=== PATIENT | female | born 1965 | race Caucasian/White ===

== ENCOUNTER → 2020-12-30 08:36 | Outpatient (CLI) | payer OTHER, MEDICAID, SELFPAY ==
--- NOTE | 2020-12-30 | DI.ECHO.S_ITS ---
[facility] +---------+ : : [address] : [address] : : : : [phone] : : : : Phone: [phone]+ Echocardiogram Report + + :Name: OMAIRA THOMAS Study Date: 12/30/2020 Height: 69 in : :[facility] ReadingLocation: Weight: 227 lb : : Gender: Female BSA: 2.2 m2 : :: 1965 Age: 55 yrs BP: 131/84 mmHg: :Reason For Study: DYSPNEA : :Ordering Physician: TOSIN, : :EMMA Performed By: Georgie Marroquin : :Referring: EMMA ANDRE : + + Interpretation Summary 1) Normal left ventricular thickness, size, wall motion, and systolic function (EF 55-60%). 2) Normal right ventricular size and function. 3) No significant valvular abnormalities. 4) The right ventricular systolic pressure is estimated to be at least 28 mmHg based on an estimated right atrial pressure of 3 mm Hg. 5) No prior Echo available for comparison. Procedure: A two-dimensional transthoracic echocardiogram with color flow and Doppler was performed. The study quality was technically adequate. There is no prior echocardiogram noted for this patient. The patient was in sinus bradycardia with heart rates between 57-63 bpm during the exam. Left Ventricle: The left ventricle is normal in size and wall thickness. The ejection fraction is estimated to be 55-60%. Left ventricular wall motion is normal. Diastolic parameters suggest probable normal left ventricular diastolic function and normal filling pressures. Right Ventricle: The right ventricle is normal in size and function. Atria: The left atrium is moderately dilated. Right atrial size is normal. There is no Doppler evidence for an interatrial shunt. Mitral Valve: The mitral valve is normal in structure and function. There is trace mitral regurgitation. Aortic Valve: The aortic valve opens well. There is no aortic valve stenosis. No aortic regurgitation is present. Tricuspid Valve: The tricuspid valve is normal in structure and function. There is mild tricuspid regurgitation. The right ventricular systolic pressure is estimated to be at least 28 mmHg based on an estimated right atrial pressure of 3 mm Hg. Pulmonic Valve: The pulmonic valve is not well seen, but is grossly normal. There is no pulmonic valvular regurgitation. Great Vessels: The aortic root is normal size. The dimensions of the ascending aorta are normal. The IVC is of normal diameter and collapses greater than 50% with a sniff. This suggests a low right atrial pressure of 3 mm Hg. Pericardium/ Pleura There is no pericardial effusion. There is no pleural effusion. MMode/2D Measurements & Calculations LVIDd: 4.1 cm LVOT diam: 2.1 cm LVIDs: 2.7 cm Ao root diam: 3.3 cm FS: 32.3 % asc Aorta Diam: 3.1 cm IVSd: 1.1 cm Ao Arch Diam (Prox Trans): 2.7 cm LVPWd: 0.92 cm LV durán. diameter/BSA (cm/m^2): 1.9 LV sys. diameter/BSA (cm/m^2): 1.3 LA A2 area: 22.9 cm2 RA long axis: 5.3 cm LA A4 area: 23.4 cm2 RA area: 19.5 cm2 LA length (vol): 5.6 cm RA vol: 60.2 ml LA vol: 82.1 ml RA : 27.6 ml/m2 LA vol index: 37.7 ml/m2 IVC diam: 1.9 cm RVD1 (basal): 4.0 cm TAPSE: 2.3 cm Doppler Measurements & Calculations Ao V2 max: 119.6 cm/sec LVOT Max Ga: 96.0 cm/sec Ao V2 mean: 85.0 cm/sec LV V1 max P.7 mmHg Ao max P.7 mmHg LV V1 VTI: 23.7 cm Ao mean P.3 mmHg CA(I,D): 2.6 cm2 Ao V2 VTI: 30.4 cm CA(V,D): 2.7 cm2 sev ratio: 0.78 CA indexed to BSA (cm^2/m^2): 1.2 MV E max ga: 88.6 cm/sec TR max ga: 248.5 cm/sec MV A max ga: 77.7 cm/sec TR max P.7 mmHg MV E/A: 1.1 PA V2 max: 82.8 cm/sec Med Peak E' Ga: 8.9 cm/sec PA V2 mean: 55.5 cm/sec E/E' med: 10.0 PA mean P.4 mmHg Lat Peak E' Ga: 10.7 cm/sec PA pr(Accel): 19.1 mmHg E/E' lat: 8.3 E/e' average: 9.1 MV dec time: 0.19 sec SV(LVOT): 79.2 ml Reading Physician:11:14 AM
== END ==
PROVIDERS: Referring Provider Internal Medicine Cardiovascular Disease; Visit Provider Internal Medicine Cardiovascular Disease
DX: I07.1 Rheumatic tricuspid insufficiency (principal); R06.00 Dyspnea, unspecified; R60.0 Localized edema
CPT/HCPCS: 93306

== ENCOUNTER → 2021-05-09 08:18 | Outpatient (CLI) | payer OTHER, MEDICAID, SELFPAY ==
--- NOTE | 2021-05-09 | DI.MG.S_ITS ---
BILATERAL DIGITAL SCREENING MAMMOGRAM 3D/2D WITH CAD: 05/09/2021 CLINICAL: Routine screening. Family history of breast cancer. Comparison is made to exams dated: 08/17/2012 mammogram and 08/20/2011 mammogram - outside facility. There are scattered fibroglandular elements in both breasts. Current study was also evaluated with a Computer Aided Detection (CAD) system. There is a possible developing new 0.6 cm oval equal density asymmetry in the left breast middle depth central to the nipple seen on the craniocaudal view only. No other significant masses, calcifications, or other findings are seen in either breast. IMPRESSION: INCOMPLETE: NEEDS ADDITIONAL IMAGING EVALUATION The possible developing new 0.6 cm oval equal density asymmetry in the left breast is indeterminate. Additional views with possible ultrasound are recommended. This exam was interpreted at Station ID: [id number]. NOTE: For mammograms, a report in lay terms will be sent to the patient. Approximately 15% of breast malignancies will not be visualized mammographically. In the management of a palpable breast mass, a negative mammogram must not discourage biopsy of a clinically suspicious lesion. Electronically Signed By: Peyman Ann M.D. aty/:05/09/2021 14:40:08 letter sent: Additional Imaging Needed ACR BI-RADS Category 0: Incomplete [id number]
== END ==
PROVIDERS: Family Provider Nurse Practitioner; PCP Nurse Practitioner; Referring Provider Registered Nurse General Practice; Visit Provider Registered Nurse General Practice
DX: Z12.31 Encounter for screening mammogram for malignant neoplasm of breast (principal); Z80.3 Family history of malignant neoplasm of breast
CPT/HCPCS: 77063; 77067

== ENCOUNTER 2021-05-22 09:00 | Outpatient (RCR) | payer OTHER, MEDICAID, SELFPAY ==
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
--- NOTE | 2021-05-01 10:01 | PT-OP ANOTE ---
Pt called and cancelled same day appt, not having a good day and needed to cancel. 

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
--- NOTE | 2021-05-07 10:08 | PT-OP ANOTE ---
Pt no shows appointment. This is the first visit scheduled with this PT. She no showed evaluation and has had one same day cancellation. PT calls number in chart that has a full voicemail. Two calls to the [facility] and PT speaks with transportation person who states that pt did not have transportation scheduled today and that pt came to [place] for PT yesterday. PT ed that pt did not have a PT appointment at [facility] yesterday but had one today. Also left message for Leighton at extension [phone]. If do not hear back from him by the end of the day, will d/c PT and cancel the rest of appointments.
--- NOTE | 2021-05-07 10:33 | PT-OP ANOTE ---
PT speaks with front office who reports that Leighton returned call and pt to get transportation set up through him now that he knows the appointments. Will keep current appointments.
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
== END 2021-07-01 08:43 ==
LOC: PHYS 09:00
PROVIDERS: Family Provider Nurse Practitioner; PCP Nurse Practitioner; Referring Provider Nurse Practitioner; Visit Provider Nurse Practitioner
DX: M25.511 Pain in right shoulder (principal)
CPT/HCPCS: 97010; 97110; 97140; 97163; 97535

== ENCOUNTER 2021-05-27 08:59 | Emergency (ER) | payer OTHER, MEDICAID, SELFPAY ==
[2021-05-27 09:08] VITALS: BP 126/78; PULSE 112; RESP 14; TEMP 36.8; O2SAT 94; BMI 29.5
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
--- NOTE | 2021-05-27 10:06 | PC.NURSE ---
Pts dog pulled on the leash 2 days ago and now her neck hurts.
== END 2021-05-27 10:08 | disposition home or self-care (01) ==
PROVIDERS: Emergency Provider Emergency Medicine; Family Provider Nurse Practitioner; PCP Nurse Practitioner
DX: S16.1XXA Strain of muscle, fascia and tendon at neck level, initial encounter (principal); F17.200 Nicotine dependence, unspecified, uncomplicated; X50.0XXA Overexertion from strenuous movement or load, initial encounter
CPT/HCPCS: 99281

== ENCOUNTER → 2021-06-10 08:52 | Outpatient (CLI) | payer OTHER, MEDICAID, SELFPAY ==
--- NOTE | 2021-06-10 08:54 | DI.MG.S_ITS ---
UNILATERAL LEFT DIGITAL DIAGNOSTIC MAMMOGRAM 3D/2D WITH ADDITIONAL VIEWS: 06/10/2021 CLINICAL: Additional evaluation requested from prior study. Comparison is made to exams dated: 08/17/2012 mammogram - outside facility, 05/09/2021 mammogram - [facility], and 08/20/2011 mammogram - outside facility. There are scattered fibroglandular elements in left breast. There is a new 0.6 cm oval equal density asymmetry in the left breast middle depth central to the nipple seen on the craniocaudal view only. No other significant masses or calcifications are seen in the breast. IMPRESSION: INCOMPLETE: NEEDS ADDITIONAL IMAGING EVALUATION The new 0.6 cm oval equal density asymmetry in the left breast is indeterminate. A targeted ultrasound is recommended and will immediately follow. This exam was interpreted at Station ID: [id number]. NOTE: For mammograms, a report in lay terms will be sent to the patient. Approximately 15% of breast malignancies will not be visualized mammographically. In the management of a palpable breast mass, a negative mammogram must not discourage biopsy of a clinically suspicious lesion. Electronically Signed By: Min Beavers M.D. slc/:06/10/2021 09:54:07 ACR BI-RADS Category 0: Incomplete [id number]
--- NOTE | 2021-06-10 08:55 | DI.US.S_ITS ---
PROCEDURE: US BREAST LT LIMITED COMPARISON: None. INDICATIONS: ADD VIEW LEFT BREAST FINDINGS: IMPRESSION: Dictated by: Min Beavers M.D. on 06/10/2021 at 11:45 Approved by: Min Beavers M.D. on 06/10/2021 at 11:45
--- NOTE | 2021-06-10 10:33 | DI.US.S_ITS ---
At the request of: TIARA HATFIELD Procedure: US breast LT limited LIMITED ULTRASOUND OF LEFT BREAST AND AXILLA: 06/10/2021 CLINICAL: Patient returns today to evaluate a focal asymmetry in the left breast. Comparison is made to exams dated: 06/10/2021 mammogram, 05/09/2021 mammogram - [facility], 08/17/2012 mammogram, and 08/20/2011 mammogram - outside facility. Color flow and real-time ultrasound of the left breast axilla were performed. Dahl scale images of the real-time examination were reviewed. There is a 0.8 cm x 0.4 cm x 0.4 cm wider than tall oval mass in the left breast at 12 o'clock middle depth 4 cm from the nipple. This oval mass is hypoechoic. This likely correlates with mammography findings. Color flow imaging demonstrates that there is no vascularity present. No significant abnormalities were seen sonographically in the left axilla. IMPRESSION: SUSPICIOUS OF MALIGNANCY The 0.8 cm x 0.4 cm x 0.4 cm wider than tall oval mass in the left breast is at a low suspicion for malignancy. An ultrasound guided biopsy is recommended. Exam findings were discussed with the patient by Dr. Slater. This exam was interpreted at Station ID: [id number]. Electronically Signed By: Min Beavers M.D. slc/:06/10/2021 11:52:40 letter sent: Biopsy Required Ultrasound BI-RADS: 4a Low suspicion for malignancy Continued Report - Page 2 of 2 Patient Name: OMAIRA THOMAS date: 1965 Sex: F Attending Physician: Lawrence Indications: Date: 06/10/2021 10:30 At the request of: TIARA HATFIELD Procedure: US breast LT limited
== END ==
PROVIDERS: Family Provider Nurse Practitioner; PCP Nurse Practitioner; Referring Provider Registered Nurse General Practice; Visit Provider Registered Nurse General Practice
DX: R92.8 Other abnormal and inconclusive findings on diagnostic imaging of breast (principal); N63.25 Unspecified lump in the left breast, overlapping quadrants
CPT/HCPCS: 76642; 77065; G0279

== ENCOUNTER → 2021-07-11 09:00 | Outpatient (CLI) | payer OTHER, MEDICAID, SELFPAY ==
--- NOTE | 2021-07-11 | DI.MG.S_ITS ---
UNILATERAL LEFT DIGITAL DIAGNOSTIC MAMMOGRAM 3D/2D POST-PROCEDURE IMAGING FOR MARKER PLACEMENT: 07/11/2021 CLINICAL: Left post clip. Comparison is made to exams dated: 07/11/2021 ultrasound biopsy, 06/10/2021 ultrasound, and 06/10/2021 mammogram - [facility]. There are scattered fibroglandular elements in left breast. There is a marker clip in the appropriate position in the left breast at 12 o'clock middle depth. This marker clip placement is at the biopsy site. IMPRESSION: POST PROCEDURE MAMMOGRAM FOR MARKER PLACEMENT There was a successful marker clip placement in the left breast middle depth. This exam was interpreted at Station ID: [id number]. NOTE: For mammograms, a report in lay terms will be sent to the patient. Approximately 15% of breast malignancies will not be visualized mammographically. In the management of a palpable breast mass, a negative mammogram must not discourage biopsy of a clinically suspicious lesion. Electronically Signed By: Tawanna mendenhall/nico:07/11/2021 15:33:24 ACR BI-RADS Category Post-procedure mammogram for marker placement
--- NOTE | 2021-07-11 | DI.US.S_ITS ---
ULTRASOUND GUIDED BIOPSY LEFT BREAST USING VACUUM DEVICE WITH MARKING DEVICE INSERTED AND POST DIGITAL MAMMOGRAPHIC IMAGIN07/11/2021 CLINICAL: Left breast mass. PATIENT CONSENT: Risks (minor bleeding, infection, vasovagal reaction and repeat procedure), benefits and alternatives were explained to the patient and written informed consent was obtained. Correlation is made to exams dated: 06/10/2021 ultrasound, 06/10/2021 mammogram, 05/09/2021 mammogram - [facility], 08/17/2012 mammogram, and 08/20/2011 mammogram - outside facility. An ultrasound guided biopsy using real-time ultrasound was performed for the oval mass located in the left breast at 12 o'clock middle depth. The skin was prepped in the usual manner. Local anesthetic was administered to the access site. A skin richard was made in the breast. The abnormality was approached from the lateral aspect. A 13 gauge biopsy needle was placed adjacent to the abnormality under ultrasound guidance. Once the needle was documented to be in the correct location, three specimens were obtained using the Mammotome biopsy system. A Vision biopsy clip was inserted into the biopsy cavity. A skin closure strip was applied to the access site. Post procedure digital mammographic imaging was obtained. The specimens were sent to the laboratory for pathological analysis. IMPRESSION: ULTRASOUND GUIDED BIOPSY BENIGN Ultrasound guided biopsy of the mass in the left breast at 12 o'clock middle depth was successful. Pathology indicates benign chronic inflammation with micro-calcifications present. Pathology results are concordant with imaging findings. Return to annual mammogram screening schedule is recommended. This exam was interpreted at Station ID: [id number]. Tawanna Ann M.D. [facility],aty/:07/16/2021 07:59:31
--- NOTE | 2021-07-11 | PATH_ITS ---
[facility] Accession Number: [id number] No. of containers..01 Tissue . 01 Material submitted: . breast - LEFT BREAST MASS 12:00 4CMFN . 02 Diagnosis: A. Left Breast Mass, 12 o'clock, 4 cm from the Nipple, Biopsy: Fragments of cyst wall with associated microcalcifications and chronic inflammation. Background breast parenchyma within normal limits. Negative for atypia, carcinoma in situ, and malignancy. MRV 07/14/2021 1015 Local . 02 Electronically signed: . Angeli Davison MD, Pathologist NPI- [id number] . 01 Gross description: . Received one formalin-filled container, labeled with the patient's name and designated left breast mass 12 o'clock 4 cm FN. The specimen is received with a plastic filter in container, sample loose in container and consists of three fragments of yellow-carrion soft tissue which range in size from 1.0 x 0.3 x 0.3 cm to 1.3 x 0.3 x 0.3 cm. All fragments are totally submitted in one cassette. Possible collection date and time per requisition: 07/11/2021 at 10:24. Total fixation time: Approximately 42 hours. ([id number]) /FRR 07/12/2021 0953 Local . 02 Pathologist provided ICD-10: R92.8 . 02 CPT . 624083 Specimen Comment: A courtesy copy of this report has been sent to [facility] Performed at: 01 [facility] [address] [facility], [place], [place] [id number] MD Papa Murdock MD Phone: [phone] Performed at: 02 [facility] [id number] [place] [id number] MD Jessie Tavarez MD Phone: [phone]
== END ==
PROVIDERS: Family Provider Nurse Practitioner; PCP Nurse Practitioner; Referring Provider Registered Nurse General Practice; Visit Provider Registered Nurse General Practice
DX: N61.0 Mastitis without abscess (principal); R92.1 Mammographic calcification found on diagnostic imaging of breast
CPT/HCPCS: 19083; 77065

== ENCOUNTER → 2021-12-02 09:06 | Outpatient (CLI) | payer OTHER, MEDICAID, SELFPAY ==
--- NOTE | 2021-12-02 | DI.RAD.S_ITS ---
PROCEDURE: XR CHEST 2V INDICATIONS: cough, shortness of breath, nicotine dependence, bronchitis TECHNIQUE: 2 views of the chest were acquired. COMPARISON: None. FINDINGS: Surgical changes and devices: None. Lungs and pleura: Lungs are clear. No pleural effusions or pneumothorax. Coarsened centralized bronchovascular markings Mediastinum: Mediastinal contours are normal. Heart size is normal. Bones and chest wall: No suspicious bony abnormalities. Soft tissues appear unremarkable. IMPRESSION: Coarsened centralized bronchovascular markings may reflect chronic bronchitis. No focal infiltrate Approved by: Tin Hanley M.D. on 12/02/2021 at 9:22
== END ==
PROVIDERS: Family Provider Nurse Practitioner; PCP Nurse Practitioner; Referring Provider Registered Nurse General Practice; Visit Provider Registered Nurse General Practice
DX: R06.02 Shortness of breath (principal); R05.9 Cough, unspecified; J40 Bronchitis, not specified as acute or chronic; F17.219 Nicotine dependence, cigarettes, with unspecified nicotine-induced disorders
CPT/HCPCS: 71046

== ENCOUNTER → 2022-12-04 11:54 | Outpatient (CLI) | payer OTHER, MEDICAID, SELFPAY ==
--- NOTE | 2022-12-04 | DI.MG.S_ITS ---
BILATERAL DIGITAL DIAGNOSTIC MAMMOGRAM 3D/2D: 12/04/2022 CLINICAL: Post excisional biopsy Left. Family history of breast cancer. Comparison is made to exams dated: 07/11/2021 mammogram, 06/10/2021 mammogram, 05/09/2021 mammogram - [facility], and 08/17/2012 mammogram - outside facility. There are scattered areas of fibroglandular density in both breasts (category b / 25%-50% glandular tissue). No significant masses, calcifications, or other findings are seen in either breast. Left breast biopsy clip and scar marker. IMPRESSION: BENIGN There is no mammographic evidence of malignancy. Left breast scar marker. Stable left breast biopsy clip. A 1 year screening mammogram is recommended. Exam findings were conveyed to the patient. Based on the Tyrer Cuzick model (a risk assessment model) the patient's lifetime risk is 13.0% and her 10 year risk is 5.1%. According to the ACR, ACS, and NCCN guidelines, an annual breast MRI exam along with mammogram is recommended if the patient's lifetime risk is 20% or greater. This exam was interpreted at Station ID: [id number]. NOTE: For mammograms, a report in lay terms will be sent to the patient. Approximately 15% of breast malignancies will not be visualized mammographically. In the management of a palpable breast mass, a negative mammogram must not discourage biopsy of a clinically suspicious lesion. Electronically Signed By: Min Beavers M.D. [facility]/:12/04/2022 12:32:59 letter sent: Normal Exam ACR BI-RADS Category 2: Benign Finding(s) 3342F
== END ==
PROVIDERS: Family Provider Nurse Practitioner Family; PCP Nurse Practitioner Family; Referring Provider Nurse Practitioner Family; Visit Provider Nurse Practitioner Family
DX: N63.20 Unspecified lump in the left breast, unspecified quadrant (principal); Z80.3 Family history of malignant neoplasm of breast
CPT/HCPCS: 77066; G0279

== ENCOUNTER 2023-03-03 10:45 | Outpatient (RCR) | payer OTHER, MEDICAID, SELFPAY ==
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
--- NOTE | 2023-01-15 10:17 | PT-OP ANOTE ---
Pt did not show for today's appt. MEDICAL RESEARCHER left voice message regarding and reminded no show policy and try call >24 hrs if need cancel. Reminded of next appt 01/20 at 1245 with PT Romy.
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
--- NOTE | 2023-02-12 12:16 | PT-OP ANOTE ---
Pt did not show for today's appt at 1200. MILL REPRESENTATIVE called and left message regarding, reminded of [facility] policy. Reminded of next appt 02/15 at 1200.
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
--- NOTE | 2023-03-01 11:34 | PT.OPPOC ---
Physical, Occupational & Speech Therapy At [facility] Current Diagnoses Pain in unspecified shoulder (03/01/23) Pain in unspecified knee (03/01/23) Cervicalgia (03/01/23) Low back pain, unspecified (03/01/23) Pain in thoracic spine (03/01/23) Muscle weakness (generalized) (03/01/23) Difficulty in walking, not elsewhere classified (03/01/23) Unsteadiness on feet (03/01/23) Abnormal posture (03/01/23) Visit Care Team Role Provider Type Aniket Zepeda, TONY, SECTION MAINTAINER Attending Provider Non-Staff Family Provider Primary Care Provider Referring Provider Specialty: Nursing Address: [address] [place], [address] Fax: Email: Plan Of Care PT-OP-T Assessment and Plan Start: 12/07/22 09:24 Freq: Status: Active Protocol: Document 03/01/23 10:02 [facility] (Rec: 03/01/23 11:33 [facility] [id number]) Physical Therapy Assessment Goals functional measures Impairment Quick Dash 40.9; LEFS 39/80 Short Term Goal (STG) Pt will improve LEFS score to at least 45/80 to show improved functional ability. 10/2-LEFS worse STG Duration 04/29 Electronics Recycler Goal (LTG) Pt will improve LEFS score to at least 55/80 to show improved functional ability. LTG Duration 05/24 activity Short Term Goal (STG) Pt will be able to ambulate 1/ 2 mile before she inc pain greater than 4/10. 01/06/23: able walk 1/2 mile with 4 little hills/[place] approx 5/10 pain so goes back. 02/15/23: Pt reports little reports neck pain still about 5-6/10 starting out for walks but able increase to 1 mile 1x /day starting out then after stops and performs stretches then feels better 5/10. STG Duration achieved 03/01 Halfway Goal (LTG) Pt will be able to ambulate 1 mile before she inc pain greater than 3/10. 02/15/23: progressing walking about 1 mile now but neck pain 5-6/10. 10/2-7/10 after 1 mile right now d/t inc pain after the last week LTG Duration 05/24 ROM Short Term Goal (STG) Pt will improve cervical rotation B by at least 10 deg in order to improve ability to turn for driving 03/01-achieved advance to at least 65 deg rot B for driving STG Duration 04/19 Electronics Recycler Goal (LTG) Pt will be able to lift RUE into flex and abd to at least 100 deg to allow greater ease w/ADLs like washing hair. LTG Duration achieved 03/01 standing Impairment pain immediately w/standing Short Term Goal (STG) Pt will be able to stand for 5 minutes w/o inc back pain or knee pain. 01/06/23: progresing reports about to stand about 5 min then has pain to sit and take breaks, dishes/ cooking. 02/15/23: Pain increases about 5 min doing dishes but little better with wt shifting 8>12/07 . 10/2-limited right now since irritated back and knee w/long walk STG Duration 04/29 Assessment Summary Assessment Pt has made excellent progress w/PT and is demonstrating much improved neck and shoulder ROM, but does still note neck stiffness and R shoulder pain especially w/ lifting. She was doing well w/ walking, but back and knee got signfiicantly flared up after walking across town about 1 week ago and is noting radicular pain in LLE along w/ L knee pain ant. She would benefit from cont PT to work on improving cervical rot as she soon returns to driving, RUE strength and ROM in order to dec pain w/overhead activities and BLE strength and core stabiltiy as pt cont to be limited by this w/gait and standing d/t pain. Physical Therapy Plan Frequency and Duration Frequency of Treatment 1-2x/wk Duration of treatment (weeks) 12 Plan of Care Start Date 03/01/23 Plan of Care End Date 05/24/23 Therapeutic Interventions Therapeutic Interventions Aquatic Therapy,Balance Training,Gait Training,Home Exercise Program,Joint Mobilizations,Manual Therapy, Neuromuscular Re-education, Orthotic/Prosthetic Management ,Patient/Caregiver Education, Self-Care/Home Management,Soft Tissue Mobilization,Taping, Therapeutic Activities, Therapeutic Exercises Modalities Cold Pack/Ice Massage,Electric Stimulation,Hot Packs, Infrared Therapy,Iontophoresis ,Traction- Mechanical, Ultrasound Next Visit Focus/Plan Next Note Type Treatment Note Next Visit Plan 11th visit next tx PN POC:cont to work on shoulder strength and cervical ROM; manual o improve neck and shoulder ROM Plan of Care Dates Plan of Care Start Date 03/01/23 Plan of Care End Date 05/24/23 Electronically Signed by: Romy Rajan, PT 03/01/23 [id number] If you are in agreement with this Plan of Care, please return a signed and dated copy. I have reviewed this Plan of Care and certify that the skilled therapy services above are required to meet the patient?s needs. Physician Signature Date Printed Name and Credentials Clinical Instructor Signature Printed Name and Credentials
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
--- NOTE | 2023-03-10 11:00 | PT-OP ANOTE ---
Pt did not show for today's appt. DRY CELL AND BATTERY ASSEMBLER called and left voice message regarding, reminded of potential NS fee may acrue. Offered DR[employer] CE[employer] AND BATTERY ASSEMBLER opening appts this afternoon if still wanting to come in at 1200 or 1245, please call office to schedule and reminded next appt 03/17 at 1045.
--- NOTE | 2023-03-12 11:29 | PT-OP ANOTE ---
CODE NUMBER STAMPER called pt regarding 4 NS and multiple cancellations over the past 2-3 months, left voicemessage, understanding that few cancellations are in regard to not having transportation. CODE NUMBER STAMPER reminded policy 50% + and no more than 2 NS allowed before needing to DC, she has had excess of this and therefore will be discharging from PT, cancelling remaining appts scheduled and can contact physician for new referral to return. Her insurance only allows 1 eval per year and so will have to wait until May to return. If has any questions she can call us, we wish to support her in her health and well being, needing her to attend appts to do so. PT Romy will complete discharge.
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
== END 2023-03-16 10:52 | disposition home or self-care (01) ==
LOC: PHYS 10:45
PROVIDERS: Absent Provider Nurse Practitioner Family; Family Provider Nurse Practitioner Family; PCP Nurse Practitioner Family; Referring Provider Nurse Practitioner Family; Visit Provider Nurse Practitioner Family
DX: M25.519 Pain in unspecified shoulder (principal); M25.569 Pain in unspecified knee; M54.50 Low back pain, unspecified; M54.6 Pain in thoracic spine; M62.81 Muscle weakness (generalized); R29.3 Abnormal posture; R26.2 Difficulty in walking, not elsewhere classified; R26.81 Unsteadiness on feet; M54.2 Cervicalgia
CPT/HCPCS: 97010; 97110; 97140; 97163

== ENCOUNTER → 2023-05-14 10:16 | Outpatient (CLI) | payer OTHER, MEDICAID, SELFPAY | PROVIDERS: Family Provider Nurse Practitioner Family; PCP Nurse Practitioner Family; Referring Provider Nurse Practitioner Family; Visit Provider Physician Assistant | DX: R60.9 Edema, unspecified (principal) | CPT/HCPCS: 99203; 99214 ==

== ENCOUNTER 2023-08-27 10:30 | Outpatient (RCR) | payer OTHER, MEDICAID, SELFPAY ==
--- NOTE | 2023-08-25 12:50 | PT.OIE ---
Current Diagnoses Pain in unspecified shoulder (08/25/23) Pain in unspecified knee (08/25/23) Other lack of coordination (08/25/23) Pain, unspecified (08/25/23) Weakness (08/25/23) Visit Care Team Role Provider Type Aniket Zepeda, TONY, MICROECONOMICS PROFESSOR Attending Provider Non-Staff Family Provider Primary Care Provider Referring Provider Specialty: Nursing Address: [address] [place] [address] [address] [place], [address] Fax: Email: Physical Therapy Initial Evaluation PT-OP-A Visit Information Start: 08/25/23 08:11 Freq: Status: Active Protocol: Document 08/25/23 11:20 NM (Rec: 08/25/23 12:51 NM [id number]) Out-Patient Physical Therapy Visit Information Visit Information Visit Type Initial Evaluation Visit Note 24 visits Visit Start Time 11:20 Visit Stop Time 12:05 Visit Number 1 Evaluation Information Evaluation Date 08/25/23 Precautions Precautions Fall risk PT-OP-B Current Condition Start: 08/25/23 08:11 Freq: Status: Active Protocol: Document 08/25/23 11:20 NM (Rec: 08/25/23 12:51 NM [id number]) Current Condition History of Current Condition Current Complaints pain History of Current Condition Pt presents with R torn rotator cuff, reports dx with imaging; traumatically injured when arm being pulled behind her, heard pop several decades ago. She has neck pain on R side, inflammation; hx of fibromyalgia. Began worsening a month ago. Pt reports pain at rest, reaching , lifting, sleeping (2 hours)- sleeps on L side. Pt has edema in B legs, wears compression hose and has tingling feet/hands; stopped PT due to wounds. PT has been doing acupuncture, which is helpful. [place] Gatherer strength has worsened, numbness all fingers . Pt also has neck pain from previous injury. Has R abdominal hernia that has not been repaired. Pt also has L knee pain as well since 2020, planning to have TKA in future but unscheduled. She reports instability due to OA. Pt has had several falls due to knee instability. Pt reports difficulty with standing (5 min), walking (5 -10 min), stairs (has B rails, 4). Uses spc when flared up because difficulty with weightbearing. Prior Treatments and Tests previous PT in 2022 for same conditions, but stopped attending PT; has not had surgery for same conditions yet PT-OP-C Subjective Start: 08/25/23 08:11 Freq: Status: Active Protocol: Document 08/25/23 11:20 NM (Rec: 08/25/23 12:51 NM [id number]) OP-PT Subjective Patient Comments Patient Comments see hx above for pt report Patient Questionnaires Lower Extremity Functional Scale LEFS Score 28/80 Quick Dash- Upper Extremity Quick Dash UE Score 29% (score 37) OP-PT Pain Assessment Location L knee Pain Location Details inside joint on anterior and medial knee, subpatellar Intensity 7 Scale Used Numeric (0 - 10) Description Aching,Sharp Frequency Constant Pain Aggravating Factors ADL's,Activity,Standing, Walking,Stair Climbing Other Pain Aggravating Factors sleeping Pain Alleviating Factors Cold,Heat,Medication,Elevation ,Rest Other Pain Alleviating Factors sitting R shoulder Pain Location Details lateral shoulder, posterior cuff Intensity 6 Scale Used Numeric (0 - 10) Description Aching,Sharp Frequency Constant Radiating Location to posterior elbow Pain Aggravating Factors Position,ADL's,Activity, Lifting Other Pain Aggravating Factors reaching, yard work Pain Alleviating Factors Cold,Heat,Medication Home Pain Medication Use Pain Medications Used Yes: methadone, gabapentin, topicals, lidocaine Pain Behaviors Pain Behaviors Facial Grimacing,Holding Area PT-OP-D Balance Start: 08/25/23 08:11 Freq: Status: Active Protocol: Document 08/25/23 11:20 NM (Rec: 08/25/23 12:51 NM [id number]) Balance Tests Single Limb Standing Single Limb- Right 8 seconds Single Limb- Left 3 seconds, painful Semi-Tandem Standing Semi-Tandem Standing Balance 5 seconds, painful PT-OP-E Functional Tests Start: 08/25/23 08:11 Freq: Status: Active Protocol: Document 08/25/23 11:20 NM (Rec: 08/25/23 12:51 NM [id number]) Functional Tests Apley's Scratch Test Action 1- Left post cuff Action 1- Right clavicle Action 2- Left C7 Action 2- Right ear Action 3- Left T12 Action 3- Right pocket, most painful Five Times Sit to Stand Test Score 27 seconds Comments no TKE, painful, increased time required PT-OP-F Manual Assessment Start: 08/25/23 08:11 Freq: Status: Active Protocol: Document 08/25/23 11:20 NM (Rec: 08/25/23 12:51 NM [id number]) Manual Assessments Soft Tissue Assessment Soft Tissue Mobility Assessment Tightness in B hamstrings, quads, heel cords, R cervical spine paraspinals Joint Mobility Assessment Joint Mobility Assessment No knee ligamentous instability noted, but increased tenderness and bony prominences. Decreased AROM across cervical spine, including decreased mobility with P-A springing; no upper cervical instability. R humerus anterior in capsule, decreased AC joint space PT-OP-G Mobility & Gait Start: 08/25/23 08:11 Freq: Status: Active Protocol: Document 08/25/23 11:20 NM (Rec: 08/25/23 12:51 NM [id number]) OP Gait Assessment Gait Gait Assistance Required: Independent Distance (Feet) 150 Assistive Devices Assistive Device Gait Belt,Straight Cane Gait Deviations General Gait Pattern Antalgic,Decreased Stride Length,Flexed Trunk,Step-to Gait Comments Gait Comments Does not demo TKE in gait and stance PT-OP-H Neuro Start: 08/25/23 08:11 Freq: Status: Active Protocol: Document 08/25/23 11:20 NM (Rec: 08/25/23 12:51 NM [id number]) Sensation Evaluation Gross Sensation Gross Sensation Left LE Impaired,Right LE Impaired Sensation Description Paresthesia Dermatome Impairments L4,L5,S1 Comments Summary Comments BUE equally intact to light touch sensation PT-OP-J Posture/Palpation/Skin Start: 08/25/23 08:11 Freq: Status: Active Protocol: Document 08/25/23 11:20 NM (Rec: 08/25/23 12:51 NM [id number]) Posture Evaluation Position Standing Head/C-Spine Posture Forward Head T-Spine Posture Increased Kyphosis L-Spine Posture Increased Lordosis Scapula Posture (L) Protracted,(R) Protracted, (L) Elevated Arm Posture (L) Internally Rotated,(R) Internally Rotated Pelvis Posture Anteriorly Tilted Weight Distribution Weight Shifted Right,Decreased Wt.Bear on (L) Hip Posture (L) Externally Rotated,(R) Externally Rotated Knee Posture (L) Genu Valgus,(R) Genu Valgus Patellar Posture (L) Superior,(R) Superior Comments Posture Comments No TKE bilaterally in stance or gait Palpation Assessment Location L knee Palpation Findings Soft Tissue Tightness, Tenderness Palpation Details Tightness: hamstrings, hip flexors, adductors, quad Tenderness: medial knee near patella, joint line, patella cervical spine Palpation Findings Soft Tissue Tightness,Spasm, Tenderness Palpation Details Tenderness and tightness: SCM, upper trapezius, paraspinals R>L, suboccipitals Spasm: suboccipitals Reproduces R arm pain to shoulder R shoulder Palpation Findings Tenderness Palpation Details Tenderness: rotator cuff ( teres, infraspinatus, supraspinatus), lat Skin Assessment Other Assessments Skin Assessment Comments BLE edema from ankles to hips PT-OP-K Range of Motion Start: 08/25/23 08:11 Freq: Status: Active Protocol: Document 08/25/23 11:20 NM (Rec: 08/25/23 12:51 NM [id number]) Cervical Spine Range of Motion Cervical Spine Active Degrees Flexion 30 Extension 35 Rotation Left 50 Rotation Right 60 Lateral Flexion Left 30 Lateral Flexion Right 30 ROM Limitations Soft Tissue Tightness,Muscle Weakness,Pain Comments R shoulder pain with LF, neck pain with flex, Shoulder Goniometric Range of Motion Shoulder Right PROM Flexion 150 Abduction 120 External Rotation at 0 degrees Abduction 80 Internal Rotation 70 Comments Pain with all motions Left Flexion 145 Abduction 140 External Rotation at 90 degrees 70 Abduction Internal Rotation 60 Right Flexion 85 Abduction 70 External Rotation at 0 degrees Abduction 45 Internal Rotation 60 Comments Pain with all motions especially ER, abduction, and flexion Hip Goniometric Range of Motion Hip Right Flexion w/Knee Flexed 115 Internal Rotation 20 External Rotation 30 Left Flexion w/Knee Flexed 110 Internal Rotation 20 External Rotation 30 Knee Goniometric Range of Motion Knee Right Flexion Active (degrees) 120 Extension Active (degrees) 5 Extension Passive (degrees) 4 Left Flexion Active (degrees) 115 Flexion Passive (degrees) 118 Extension Active (degrees) 5 Extension Passive (degrees) 4 Comments painful flexion and extension PT-OP-L Special Tests Start: 08/25/23 08:11 Freq: Status: Active Protocol: Document 08/25/23 11:20 NM (Rec: 08/25/23 12:51 NM [id number]) Special Tests Cervical Spine Special Tests flexion rotation Test Results + Traction Test Results + Upper Limb Tension Test Comments did not assess due to time, will assess next session Spurling's Test Test Results + Comments R Shoulder Special Tests Lift-Off Rotator Cuff Test Results unable to achieve position External Rotation Lag Sign Test Results + Drop Arm Rotator Cuff Test Results - Empty Can Test Results + Comments ER>IR Knee Special Tests Patellar Grind Test Test Results + Varus Test Results - Comments 0 and 25 deg Valgus Test Results - Comments 0 and 25 deg Prashanth Test Results - Lucina's Test Results - PT-OP-M Strength Start: 08/25/23 08:11 Freq: Status: Active Protocol: Document 08/25/23 11:20 NM (Rec: 08/25/23 12:51 NM [id number]) Cervical Spine Strength Cervical Spine Manual Muscle Testing Flexion (C1-2) 4 Good Extension 4 Good Rotation Left 4 Good Rotation Right 4 Good Lateral Flexion Left (C3) 4 Good Lateral Flexion Right (C3) 4 Good Comments No pain with resisted motions Shoulder Strength Shoulder Manual Muscle Testing Right Flexion 4- Good- Abduction (C5) 3+ Fair+ External Rotation 3+ Fair+ Internal Rotation 4- Good- Comments Pain with abd, flex, ER; ER most painful Left Flexion 4 Good Abduction (C5) 4 Good External Rotation 4 Good Internal Rotation 4 Good Elbow/Forearm Strength Elbow and Forearm Manual Muscle Testing Right Flexion (C6) 4- Good- Extension (C7) 4- Good- Left Flexion (C6) 4 Good Extension (C7) 4 Good Wrist Strength Wrist Manual Muscle Testing Right Flexion (C7) 4 Good Extension (C6) 4 Good Left Flexion (C7) 4 Good Extension (C6) 4 Good Hip Strength Hip Manual Muscle Testing Right Flexion (L2) 4 Good Extension (S1) 4 Good Abduction 4 Good Adduction 4 Good External Rotation 4 Good Internal Rotation 4 Good Left Flexion (L2) 4- Good- Extension (S1) 4 Good Abduction 4- Good- Adduction 4 Good External Rotation 4- Good- Internal Rotation 4- Good- Knee Strength Knee Manual Muscle Testing Right Flexion (S2) 4 Good Extension (L3) 4 Good Left Flexion (S2) 3+ Fair+ Extension (L3) 3+ Fair+ Comments Pain with resisted motion PT-OP-T Assessment and Plan Start: 08/25/23 08:11 Freq: Status: Active Protocol: Document 08/25/23 11:20 NM (Rec: 08/25/23 12:51 NM [id number]) Physical Therapy Assessment Rehab Potential Rehabilitation Potential Fair Evaluation Complexity Number of Personal Factors/Comorbidities 3 or More Number of Body Systems Impaired 3 Clinical Presentation at Evaluation Stable Impairments Impairments Activity Tolerance,Balance, Edema,Functional Activities, Functional Mobility,Gait, Integument,Pain,Posture,ROM, Sensation,Soft Tissue Mobility ,Strength,Transfers Other Concerns Barriers to Rehabilitation Pt presents with impairments at several body parts and comorbidities. She is seeking surgical intervention for her shoulder and her knee; however , she is working to lose weight and has not scheduled any operations at this time. She has had previous PT for similar conditions and made good progress with PT. Pt also has limited number of visits allowed by insurance. Goals HEP Impairment not performing HEP Short Term Goal (STG) Pt will report compliance with HEP at least 2-3x/wk in order to maximize progressions made in PT and to improve strength /mobility STG Duration 6 weeks Assisted Goal (LTG) Pt will report compliance with HEP at least 3x/wk in order to transition into maintenance program for continued strengthening/mobility and improved activity tolerance until surgery LTG Duration 12 weeks visual scanning Impairment cervical spine Impairment L rotation 50 deg, R rotation 60 deg Short Term Goal (STG) Pt will increase B cervical spine rotation AROM >65 deg in order to demonstrate improved visual scanning during driving and ADLs STG Duration 6 weeks Tamale Maker Goal (LTG) Pt will increase B cervical spine rotation AROM >75 deg in order to demonstrate improved visual scanning during driving and ADLs LTG Duration 12 weeks strength Impairment squats Impairment 5x STS in 27 sec Short Term Goal (STG) Pt will be able to perform 5x STS using LRAD in order to demonstrate improved BLE strength and knee flexion for mobility and transfers STG Duration 6 weeks Tamale Maker Goal (LTG) Pt will be able to perform 5x STS using LRAD in less than 27 seconds in order to demonstrate improved BLE strength and knee flexion for mobility and transfers LTG Duration 12 weeks functional measures Impairment LEFS Impairment 28/80 Short Term Goal (STG) Pt will increased LEFS score by at least 5 points (1/2 MCID ) in order to demonstrate increased pain management and activity tolerance prior to surgery STG Duration 6 weeks Tamale Maker Goal (LTG) Pt will increased LEFS score by at least 9 points (1 MCID) in order to demonstrate increased pain management and activity tolerance prior to surgery LTG Duration 12 weeks standing Short Term Goal (STG) Pt will report that she is able to stand >5 minutes with pain <7/10 using LRAD in order to demonstrate improved BLE strength and activity tolerance STG Duration 6 weeks Tamale Maker Goal (LTG) Pt will report that she is able to stand >15 minutes with pain <5/10 using LRAD in order to demonstrate improved BLE strength and activity tolerance LTG Duration 12 weeks Assessment Summary Assessment Pt is a 57 y.o. female presenting with R shoulder related to previous rotator cuff tear, cervical spine (R>L ), and L knee pain related to OA. Pt's cervical spine likely disc related. However, she is seeking PT in meantime while waiting for both rotator cuff repair and L TKA; neither surgery is scheduled but pt likely to seek care for L knee first. Pt's global R shoulder AROM and PROM is limited and painful, consistent with dx. Right shoulder strength is diminished and painful, especially in ER and abduction . Pt also positive for rotator cuff special tests. She has difficulty with performing ADLs due to lack of mobility, pain, and weakness. Pt's cervical spine AROM is limited , but she is able to stabilize against resisted motion. She has positive Spurling's with radiation into R arm. No cervical instability noted; however, pt likely has foraminal compression which also refers into R side. Her L knee is also limited in strength and range of motion with empty end feel. She lacks terminal knee extension in stance and gait. Pt has pain with gait, standing, stairs. She occasionally uses a spc for gait, but would benefit from more frequent use; however, this would likely aggravate her R shoulder due to sequencing pattern. Pt has limited visits due to insurance and is wanting to limit the number of visits with good HEP in order to maximize her benefits; she has had PT previously for same conditions. Pt would benefit from skilled PT to improve ADL tolerance, pain management, and improve QOL. Physical Therapy Plan Frequency and Duration Frequency of Treatment 1-2x/wk Duration of treatment (weeks) 12 Plan of Care Start Date 08/25/23 Plan of Care End Date 11/12/23 Therapeutic Interventions Therapeutic Interventions Balance Training,Coordination Training,Gait Training,Home Exercise Program,Joint Mobilizations,Lymphedema Management,Manual Therapy, Neuromuscular Re-education, Orthotic/Prosthetic Management ,Patient/Caregiver Education, Self-Care/Home Management, Sensory Integration,Soft Tissue Mobilization,Taping, Therapeutic Activities, Therapeutic Exercises Modalities Cold Pack/Ice Massage,Electric Stimulation,Hot Packs, Ultrasound,Vasopneumatic Devices Next Visit Focus/Plan Next Note Type Treatment Note Next Visit Plan B hip strengthening, knee ext mobilization Wall posture, chin tuck, scapular retractions, AAROM for shoulder, periscapular strengthening Test vertebral artery, retest LE sensation
--- NOTE | 2023-08-27 11:40 | PT.OTN ---
Current Diagnoses Pain in unspecified shoulder (08/27/23) Pain in unspecified knee (08/27/23) Other lack of coordination (08/27/23) Pain, unspecified (08/27/23) Weakness (08/27/23) Physical Therapy Treatment Note PT-OP-A Visit Information Start: 08/25/23 08:11 Freq: Status: Active Protocol: Document 08/27/23 10:33 NM (Rec: 08/27/23 11:40 NM [id number]) Out-Patient Physical Therapy Visit Information Visit Information Visit Type Treatment Note Visit Note 24 visits Visit Start Time 10:33 Visit Stop Time 11:15 Visit Number 2 PT-OP-B Current Condition Start: 08/25/23 08:11 Freq: Status: Active Protocol: Document 08/25/23 11:20 NM (Rec: 08/25/23 12:51 NM [id number]) Current Condition History of Current Condition Current Complaints pain History of Current Condition Pt presents with R torn rotator cuff, reports dx with imaging; traumatically injured when arm being pulled behind her, heard pop several decades ago. She has neck pain on R side, inflammation; hx of fibromyalgia. Began worsening a month ago. Pt reports pain at rest, reaching , lifting, sleeping (2 hours)- sleeps on L side. Pt has edema in B legs, wears compression hose and has tingling feet/hands; stopped PT due to wounds. PT has been doing acupuncture, which is helpful. End Frazer strength has worsened, numbness all fingers . Pt also has neck pain from previous injury. Has R abdominal hernia that has not been repaired. Pt also has L knee pain as well since 2019, planning to have TKA in future but unscheduled. She reports instability due to OA. Pt has had several falls due to knee instability. Pt reports difficulty with standing (5 min), walking (5 -10 min), stairs (has B rails, 4). Uses spc when flared up because difficulty with weightbearing. Prior Treatments and Tests previous PT in 2022 for same conditions, but stopped attending PT; has not had surgery for same conditions yet PT-OP-C Subjective Start: 08/25/23 08:11 Freq: Status: Active Protocol: Document 08/27/23 10:33 NM (Rec: 08/27/23 11:40 NM [id number]) OP-PT Subjective Patient Comments Patient Comments Pt reports 7/10 pain L knee, 5 /10 pain R shoulder. PT-OP-D Balance Start: 08/25/23 08:11 Freq: Status: Active Protocol: Document 08/25/23 11:20 NM (Rec: 08/25/23 12:51 NM [id number]) Balance Tests Single Limb Standing Single Limb- Right 8 seconds Single Limb- Left 3 seconds, painful Semi-Tandem Standing Semi-Tandem Standing Balance 5 seconds, painful PT-OP-E Functional Tests Start: 08/25/23 08:11 Freq: Status: Active Protocol: Document 08/25/23 11:20 NM (Rec: 08/25/23 12:51 NM [id number]) Functional Tests Apley's Scratch Test Action 1- Left post cuff Action 1- Right clavicle Action 2- Left C7 Action 2- Right ear Action 3- Left T12 Action 3- Right pocket, most painful Five Times Sit to Stand Test Score 27 seconds Comments no TKE, painful, increased time required PT-OP-F Manual Assessment Start: 08/25/23 08:11 Freq: Status: Active Protocol: Document 08/25/23 11:20 NM (Rec: 08/25/23 12:51 NM [id number]) Manual Assessments Soft Tissue Assessment Soft Tissue Mobility Assessment Tightness in B hamstrings, quads, heel cords, R cervical spine paraspinals Joint Mobility Assessment Joint Mobility Assessment No knee ligamentous instability noted, but increased tenderness and bony prominences. Decreased AROM across cervical spine, including decreased mobility with P-A springing; no upper cervical instability. R humerus anterior in capsule, decreased AC joint space PT-OP-G Mobility & Gait Start: 08/25/23 08:11 Freq: Status: Active Protocol: Document 08/25/23 11:20 NM (Rec: 08/25/23 12:51 NM [id number]) OP Gait Assessment Gait Gait Assistance Required: Independent Distance (Feet) 150 Assistive Devices Assistive Device Gait Belt,Straight Cane Gait Deviations General Gait Pattern Antalgic,Decreased Stride Length,Flexed Trunk,Step-to Gait Comments Gait Comments Does not demo TKE in gait and stance PT-OP-H Neuro Start: 08/25/23 08:11 Freq: Status: Active Protocol: Document 08/25/23 11:20 NM (Rec: 08/25/23 12:51 NM [id number]) Sensation Evaluation Gross Sensation Gross Sensation Left LE Impaired,Right LE Impaired Sensation Description Paresthesia Dermatome Impairments L4,L5,S1 Comments Summary Comments BUE equally intact to light touch sensation PT-OP-J Posture/Palpation/Skin Start: 08/25/23 08:11 Freq: Status: Active Protocol: Document 08/25/23 11:20 NM (Rec: 08/25/23 12:51 NM [id number]) Posture Evaluation Position Standing Head/C-Spine Posture Forward Head T-Spine Posture Increased Kyphosis L-Spine Posture Increased Lordosis Scapula Posture (L) Protracted,(R) Protracted, (L) Elevated Arm Posture (L) Internally Rotated,(R) Internally Rotated Pelvis Posture Anteriorly Tilted Weight Distribution Weight Shifted Right,Decreased Wt.Bear on (L) Hip Posture (L) Externally Rotated,(R) Externally Rotated Knee Posture (L) Genu Valgus,(R) Genu Valgus Patellar Posture (L) Superior,(R) Superior Comments Posture Comments No TKE bilaterally in stance or gait Palpation Assessment Location L knee Palpation Findings Soft Tissue Tightness, Tenderness Palpation Details Tightness: hamstrings, hip flexors, adductors, quad Tenderness: medial knee near patella, joint line, patella cervical spine Palpation Findings Soft Tissue Tightness,Spasm, Tenderness Palpation Details Tenderness and tightness: SCM, upper trapezius, paraspinals R>L, suboccipitals Spasm: suboccipitals Reproduces R arm pain to shoulder R shoulder Palpation Findings Tenderness Palpation Details Tenderness: rotator cuff ( teres, infraspinatus, supraspinatus), lat Skin Assessment Other Assessments Skin Assessment Comments BLE edema from ankles to hips PT-OP-K Range of Motion Start: 08/25/23 08:11 Freq: Status: Active Protocol: Document 08/25/23 11:20 NM (Rec: 08/25/23 12:51 NM [id number]) Cervical Spine Range of Motion Cervical Spine Active Degrees Flexion 30 Extension 35 Rotation Left 50 Rotation Right 60 Lateral Flexion Left 30 Lateral Flexion Right 30 ROM Limitations Soft Tissue Tightness,Muscle Weakness,Pain Comments R shoulder pain with LF, neck pain with flex, Shoulder Goniometric Range of Motion Shoulder Right PROM Flexion 150 Abduction 120 External Rotation at 0 degrees Abduction 80 Internal Rotation 70 Comments Pain with all motions Left Flexion 145 Abduction 140 External Rotation at 90 degrees 70 Abduction Internal Rotation 60 Right Flexion 85 Abduction 70 External Rotation at 0 degrees Abduction 45 Internal Rotation 60 Comments Pain with all motions especially ER, abduction, and flexion Hip Goniometric Range of Motion Hip Right Flexion w/Knee Flexed 115 Internal Rotation 20 External Rotation 30 Left Flexion w/Knee Flexed 110 Internal Rotation 20 External Rotation 30 Knee Goniometric Range of Motion Knee Right Flexion Active (degrees) 120 Extension Active (degrees) 5 Extension Passive (degrees) 4 Left Flexion Active (degrees) 115 Flexion Passive (degrees) 118 Extension Active (degrees) 5 Extension Passive (degrees) 4 Comments painful flexion and extension PT-OP-L Special Tests Start: 08/25/23 08:11 Freq: Status: Active Protocol: Document 08/27/23 10:33 NM (Rec: 08/27/23 11:40 NM [id number]) Special Tests Vascular Special Tests Vertebral Artery Test Results - Comments No signs/symptoms observed or reported PT-OP-M Strength Start: 08/25/23 08:11 Freq: Status: Active Protocol: Document 08/25/23 11:20 NM (Rec: 08/25/23 12:51 NM [id number]) Cervical Spine Strength Cervical Spine Manual Muscle Testing Flexion (C1-2) 4 Good Extension 4 Good Rotation Left 4 Good Rotation Right 4 Good Lateral Flexion Left (C3) 4 Good Lateral Flexion Right (C3) 4 Good Comments No pain with resisted motions Shoulder Strength Shoulder Manual Muscle Testing Right Flexion 4- Good- Abduction (C5) 3+ Fair+ External Rotation 3+ Fair+ Internal Rotation 4- Good- Comments Pain with abd, flex, ER; ER most painful Left Flexion 4 Good Abduction (C5) 4 Good External Rotation 4 Good Internal Rotation 4 Good Elbow/Forearm Strength Elbow and Forearm Manual Muscle Testing Right Flexion (C6) 4- Good- Extension (C7) 4- Good- Left Flexion (C6) 4 Good Extension (C7) 4 Good Wrist Strength Wrist Manual Muscle Testing Right Flexion (C7) 4 Good Extension (C6) 4 Good Left Flexion (C7) 4 Good Extension (C6) 4 Good Hip Strength Hip Manual Muscle Testing Right Flexion (L2) 4 Good Extension (S1) 4 Good Abduction 4 Good Adduction 4 Good External Rotation 4 Good Internal Rotation 4 Good Left Flexion (L2) 4- Good- Extension (S1) 4 Good Abduction 4- Good- Adduction 4 Good External Rotation 4- Good- Internal Rotation 4- Good- Knee Strength Knee Manual Muscle Testing Right Flexion (S2) 4 Good Extension (L3) 4 Good Left Flexion (S2) 3+ Fair+ Extension (L3) 3+ Fair+ Comments Pain with resisted motion PT-OP-Q Treatments Start: 08/25/23 08:11 Freq: Status: Active Protocol: Document 08/27/23 10:33 NM (Rec: 08/27/23 11:40 NM [id number]) Therapeutic Exercises Supine Exercises pec stretch Supine Exercise Name arms by side in T, chest tassel snipper Reps/Minutes 1x60 Comments pain free R shoulder AAROM Supine Exercise Name flex (added to HEP only), abd, ER Side right Resistance L assisting R with spc Reps/Minutes 1x8 ea Comments cued for pain free range; needs ext cueing with abd/ER, control SAQ Side left Equipment Used foam roller under knee Reps/Minutes 10x3 hold Comments pain free, good TKE quad set Supine Exercise Name following knee ext mobilization Side left Equipment Used towel roll behind knee Reps/Minutes 10x3 Comments reports increased pain so d/c Sidelying Exercises open book Side right Reps/Minutes 1x10 Comments pain free but limited range Sitting Exercises knee extension mobilization Side left Resistance L hand providing mobilization Reps/Minutes 1x10 with 2 Comments pain free but reports pressure hip abduction Sitting Exercise Name 1. isometric hold, 2. clams Side bilateral Resistance lvl 2 tb around thighs Reps/Minutes 1. 2x30, 2. 2x10 Comments pain free; fatiguing; Therapeutic Activity Therapeutic Activity sit to stand Reps/Minutes 3x5 Comments with spc, 1 set with UE assist and 1 set w/o UE assist, 1 set w/o UE and w/o spc Reports no pain with STS in knee when using spc Gait Training Gait Activity spc Device Used spc Level of Assistance SBA Surface stable Distance/Duration 50 ft Treatment Focus sequencing Comments 2 pt pattern spc, spc in R hand. No shoulder pain but reports improved L knee pain when using of spc in standing Manual Therapy Treatment Soft Tissue Mobilization R shoulder Body Location lat, rotator cuff, LH biceps, pec Mobilization Type Rolling,Strumming Intensity/Depth Superficial Body Position Supine Comments Tenderness at all spots, especially R lat near axilla. Emphasis on decreasing lat/pec tenderness/tightness to improve R shoulder mobility. Strumming at LH biceps. Monitored for pain cervical spine Body Location paraspinals, UT, LS Mobilization Type Myofascial Release,Rolling Intensity/Depth Moderate Body Position Supine Comments R paraspinals tender and restricted, especially naer upper trap and LS by first rib . Reports good relief with rolling. Spasms of R upper trap with gentle pressure. Monitored for pain, reports relief post mobilization L knee Body Location quad, HS Mobilization Type Instrument Assisted,Rolling Intensity/Depth Moderate Body Position Hooklying Comments Tenderness in quad, HS. Educated on modalities and soft tissue mobilization as part of HEP and pain management. Reports reduced tightness in L quad post mobilziation, monitored for pain Joint Mobilizations L knee Joint P-A for ext with ER, patellar Grade II Reps/Duration 1x10 ea Comments Pain free with TKE extension mobilizations with added tibial ER for screwhome, decreased patellar mobilization inferiorly and medially. Monitored for pain PT-OP-T Assessment and Plan Start: 08/25/23 08:11 Freq: Status: Active Protocol: Document 08/27/23 10:33 NM (Rec: 08/27/23 11:40 NM [id number]) Physical Therapy Assessment Goals HEP Impairment not performing HEP Short Term Goal (STG) Pt will report compliance with HEP at least 2-3x/wk in order to maximize progressions made in PT and to improve strength /mobility STG Duration 6 weeks Tax Examiner Goal (LTG) Pt will report compliance with HEP at least 3x/wk in order to transition into maintenance program for continued strengthening/mobility and improved activity tolerance until surgery LTG Duration 12 weeks visual scanning Impairment cervical spine Impairment L rotation 50 deg, R rotation 60 deg Short Term Goal (STG) Pt will increase B cervical spine rotation AROM >65 deg in order to demonstrate improved visual scanning during driving and ADLs STG Duration 6 weeks Alf Goal (LTG) Pt will increase B cervical spine rotation AROM >75 deg in order to demonstrate improved visual scanning during driving and ADLs LTG Duration 12 weeks strength Impairment squats Impairment 5x STS in 27 sec Short Term Goal (STG) Pt will be able to perform 5x STS using LRAD in order to demonstrate improved BLE strength and knee flexion for mobility and transfers STG Duration 6 weeks Alf Goal (LTG) Pt will be able to perform 5x STS using LRAD in less than 27 seconds in order to demonstrate improved BLE strength and knee flexion for mobility and transfers LTG Duration 12 weeks functional measures Impairment LEFS Impairment 28/80 Short Term Goal (STG) Pt will increased LEFS score by at least 5 points (1/2 MCID ) in order to demonstrate increased pain management and activity tolerance prior to surgery STG Duration 6 weeks Alf Goal (LTG) Pt will increased LEFS score by at least 9 points (1 MCID) in order to demonstrate increased pain management and activity tolerance prior to surgery LTG Duration 12 weeks standing Impairment pain immediately w/standing Short Term Goal (STG) Pt will report that she is able to stand >5 minutes with pain <7/10 using LRAD in order to demonstrate improved BLE strength and activity tolerance STG Duration 6 weeks Tax Examiner Goal (LTG) Pt will report that she is able to stand >15 minutes with pain <5/10 using LRAD in order to demonstrate improved BLE strength and activity tolerance LTG Duration 12 weeks Assessment Summary Assessment Pt tolerated session well and reports no increase in pain levels after session. Provided HEP to pt. Initiated hip abduction strengthening for stability during gait and transfers, in addition to knee extension mobilization/quad strengthening to promote TKE. Trialed sit to stand transfers using spc to offload L knee with mobility; pt with decreased pain symptoms using spc, cued for placement and anterior weight shift prior to sit to stand. Brief gait training to assess pt's sequencing and placement of spc; PT recommended pt use her spc more frequently due to decreased pain symptoms in L knee (none reported in shoulder) when upright. Due to forward posture and decreased trunk mobility, began stretching pecs, open books. Pt challenged with R shoulder AAROM, cued to remain within pain free range but pt with poor awareness of ROM limitations; requires moderate cueing for form and to minimize symptoms. Manual treatment to decrease soft tissue restrictions, improve mobility and decrease pain symptoms. Initiated grade II knee mobilizations to improve extension. Pt also with tenderness at R cervical paraspinals, R lat and rotator cuff. No positive signs/ symptoms during vertebral artery assessment. Pt would benefit from skilled PT to improve BLE functional mobility and strength, R shoulder mobility in order to decrease pain symptoms and improve activity tolerance. Physical Therapy Plan Frequency and Duration Frequency of Treatment 1-2x/wk Duration of treatment (weeks) 12 Plan of Care Start Date 08/25/23 Plan of Care End Date 11/12/23 Therapeutic Interventions Therapeutic Interventions Balance Training,Coordination Training,Gait Training,Home Exercise Program,Joint Mobilizations,Lymphedema Management,Manual Therapy, Neuromuscular Re-education, Orthotic/Prosthetic Management ,Patient/Caregiver Education, Self-Care/Home Management, Sensory Integration,Soft Tissue Mobilization,Taping, Therapeutic Activities, Therapeutic Exercises Modalities Cold Pack/Ice Massage,Electric Stimulation,Hot Packs, Ultrasound,Vasopneumatic Devices Next Visit Focus/Plan Next Note Type Treatment Note Next Visit Plan Next session: continue hip/ knee strengthening (hip abduction, bridge, TKE pain free), periscapular strengthening, sidelying R shoulder AROM and cervical spine, scap retract B hip strengthening, knee ext mobilization Wall posture, chin tuck, scapular retractions, AAROM for shoulder, periscapular strengthening
--- NOTE | 2023-09-01 12:07 | PT-OP ANOTE ---
Left message for no show this session, made patient aware of fee for less than 24 hours notice and possible discharge with 2 no shows. Also, given time and date of next appointment.
--- NOTE | 2023-09-15 09:20 | PT-OP ANOTE ---
Left messages on both cell phones listed in this patient's demographic information that she is being discharged from physical therapy for multiple missed visits.
--- NOTE | 2023-09-28 16:32 | PT.OPDS ---
Current Diagnoses Pain in unspecified shoulder (08/27/23) Pain in unspecified knee (08/27/23) Other lack of coordination (08/27/23) Pain, unspecified (08/27/23) Weakness (08/27/23) Visit Care Team Role Provider Type Aniket Zepeda, TONY, GENERAL ACTIVITIES THERAPIST Attending Provider Non-Staff Family Provider Primary Care Provider Referring Provider Specialty: Nursing Address: [address] [place] [address] [address] [place], [address] Fax: Email: Visit Number Visit Number 2 Discharge Summary PT-OP-B Current Condition Start: 08/25/23 08:11 Freq: Status: Active Protocol: Document 08/25/23 11:20 NM (Rec: 08/25/23 12:51 NM [id number]) Current Condition History of Current Condition Current Complaints pain History of Current Condition Pt presents with R torn rotator cuff, reports dx with imaging; traumatically injured when arm being pulled behind her, heard pop several decades ago. She has neck pain on R side, inflammation; hx of fibromyalgia. Began worsening a month ago. Pt reports pain at rest, reaching , lifting, sleeping (2 hours)- sleeps on L side. Pt has edema in B legs, wears compression hose and has tingling feet/hands; stopped PT due to wounds. PT has been doing acupuncture, which is helpful. 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 Pt also has neck pain from previous injury. Has R abdominal hernia that has not been repaired. Pt also has L knee pain as well since 2019, planning to have TKA in future but unscheduled. She reports instability due to OA. Pt has had several falls due to knee instability. Pt reports difficulty with standing (5 min), walking (5 -10 min), stairs (has B rails, 4). Uses spc when flared up because difficulty with weightbearing. Prior Treatments and Tests previous PT in 2022 for same conditions, but stopped attending PT; has not had surgery for same conditions yet PT-OP-C Subjective Start: 08/25/23 08:11 Freq: Status: Active Protocol: Document 08/27/23 10:33 NM (Rec: 08/27/23 11:40 NM [id number]) OP-PT Subjective Patient Comments Patient Comments Pt reports 7/10 pain L knee, 5 /10 pain R shoulder. PT-OP-D Balance Start: 08/25/23 08:11 Freq: Status: Active Protocol: Document 08/25/23 11:20 NM (Rec: 08/25/23 12:51 NM [id number]) Balance Tests Single Limb Standing Single Limb- Right 8 seconds Single Limb- Left 3 seconds, painful Semi-Tandem Standing Semi-Tandem Standing Balance 5 seconds, painful PT-OP-E Functional Tests Start: 08/25/23 08:11 Freq: Status: Active Protocol: Document 08/25/23 11:20 NM (Rec: 08/25/23 12:51 NM [id number]) Functional Tests Apley's Scratch Test Action 1- Left post cuff Action 1- Right clavicle Action 2- Left C7 Action 2- Right ear Action 3- Left T12 Action 3- Right pocket, most painful Five Times Sit to Stand Test Score 27 seconds Comments no TKE, painful, increased time required PT-OP-F Manual Assessment Start: 08/25/23 08:11 Freq: Status: Active Protocol: Document 08/25/23 11:20 NM (Rec: 08/25/23 12:51 NM [id number]) Manual Assessments Soft Tissue Assessment Soft Tissue Mobility Assessment Tightness in B hamstrings, quads, heel cords, R cervical spine paraspinals Joint Mobility Assessment Joint Mobility Assessment No knee ligamentous instability noted, but increased tenderness and bony prominences. Decreased AROM across cervical spine, including decreased mobility with P-A springing; no upper cervical instability. R humerus anterior in capsule, decreased AC joint space PT-OP-G Mobility & Gait Start: 08/25/23 08:11 Freq: Status: Active Protocol: Document 08/25/23 11:20 NM (Rec: 08/25/23 12:51 NM [id number]) OP Gait Assessment Gait Gait Assistance Required: Independent Distance (Feet) 150 Assistive Devices Assistive Device Gait Belt,Straight Cane Gait Deviations General Gait Pattern Antalgic,Decreased Stride Length,Flexed Trunk,Step-to Gait Comments Gait Comments Does not demo TKE in gait and stance PT-OP-H Neuro Start: 08/25/23 08:11 Freq: Status: Active Protocol: Document 08/25/23 11:20 NM (Rec: 08/25/23 12:51 NM [id number]) Sensation Evaluation Gross Sensation Gross Sensation Left LE Impaired,Right LE Impaired Sensation Description Paresthesia Dermatome Impairments L4,L5,S1 Comments Summary Comments BUE equally intact to light touch sensation PT-OP-J Posture/Palpation/Skin Start: 08/25/23 08:11 Freq: Status: Active Protocol: Document 08/25/23 11:20 NM (Rec: 08/25/23 12:51 NM [id number]) Posture Evaluation Position Standing Head/C-Spine Posture Forward Head T-Spine Posture Increased Kyphosis L-Spine Posture Increased Lordosis Scapula Posture (L) Protracted,(R) Protracted, (L) Elevated Arm Posture (L) Internally Rotated,(R) Internally Rotated Pelvis Posture Anteriorly Tilted Weight Distribution Weight Shifted Right,Decreased Wt.Bear on (L) Hip Posture (L) Externally Rotated,(R) Externally Rotated Knee Posture (L) Genu Valgus,(R) Genu Valgus Patellar Posture (L) Superior,(R) Superior Comments Posture Comments No TKE bilaterally in stance or gait Palpation Assessment Location L knee Palpation Findings Soft Tissue Tightness, Tenderness Palpation Details Tightness: hamstrings, hip flexors, adductors, quad Tenderness: medial knee near patella, joint line, patella cervical spine Palpation Findings Soft Tissue Tightness,Spasm, Tenderness Palpation Details Tenderness and tightness: SCM, upper trapezius, paraspinals R>L, suboccipitals Spasm: suboccipitals Reproduces R arm pain to shoulder R shoulder Palpation Findings Tenderness Palpation Details Tenderness: rotator cuff ( teres, infraspinatus, supraspinatus), lat Skin Assessment Other Assessments Skin Assessment Comments BLE edema from ankles to hips PT-OP-K Range of Motion Start: 08/25/23 08:11 Freq: Status: Active Protocol: Document 08/25/23 11:20 NM (Rec: 08/25/23 12:51 NM [id number]) Cervical Spine Range of Motion Cervical Spine Active Degrees Flexion 30 Extension 35 Rotation Left 50 Rotation Right 60 Lateral Flexion Left 30 Lateral Flexion Right 30 ROM Limitations Soft Tissue Tightness,Muscle Weakness,Pain Comments R shoulder pain with LF, neck pain with flex, Shoulder Goniometric Range of Motion Shoulder Right PROM Flexion 150 Abduction 120 External Rotation at 0 degrees Abduction 80 Internal Rotation 70 Comments Pain with all motions Left Flexion 145 Abduction 140 External Rotation at 90 degrees 70 Abduction Internal Rotation 60 Right Flexion 85 Abduction 70 External Rotation at 0 degrees Abduction 45 Internal Rotation 60 Comments Pain with all motions especially ER, abduction, and flexion Hip Goniometric Range of Motion Hip Right Flexion w/Knee Flexed 115 Internal Rotation 20 External Rotation 30 Left Flexion w/Knee Flexed 110 Internal Rotation 20 External Rotation 30 Knee Goniometric Range of Motion Knee Right Flexion Active (degrees) 120 Extension Active (degrees) 5 Extension Passive (degrees) 4 Left Flexion Active (degrees) 115 Flexion Passive (degrees) 118 Extension Active (degrees) 5 Extension Passive (degrees) 4 Comments painful flexion and extension PT-OP-L Special Tests Start: 08/25/23 08:11 Freq: Status: Active Protocol: Document 08/27/23 10:33 NM (Rec: 08/27/23 11:40 NM [id number]) Special Tests Vascular Special Tests Vertebral Artery Test Results - Comments No signs/symptoms observed or reported PT-OP-M Strength Start: 08/25/23 08:11 Freq: Status: Active Protocol: Document 08/25/23 11:20 NM (Rec: 08/25/23 12:51 NM [id number]) Cervical Spine Strength Cervical Spine Manual Muscle Testing Flexion (C1-2) 4 Good Extension 4 Good Rotation Left 4 Good Rotation Right 4 Good Lateral Flexion Left (C3) 4 Good Lateral Flexion Right (C3) 4 Good Comments No pain with resisted motions Shoulder Strength Shoulder Manual Muscle Testing Right Flexion 4- Good- Abduction (C5) 3+ Fair+ External Rotation 3+ Fair+ Internal Rotation 4- Good- Comments Pain with abd, flex, ER; ER most painful Left Flexion 4 Good Abduction (C5) 4 Good External Rotation 4 Good Internal Rotation 4 Good Elbow/Forearm Strength Elbow and Forearm Manual Muscle Testing Right Flexion (C6) 4- Good- Extension (C7) 4- Good- Left Flexion (C6) 4 Good Extension (C7) 4 Good Wrist Strength Wrist Manual Muscle Testing Right Flexion (C7) 4 Good Extension (C6) 4 Good Left Flexion (C7) 4 Good Extension (C6) 4 Good Hip Strength Hip Manual Muscle Testing Right Flexion (L2) 4 Good Extension (S1) 4 Good Abduction 4 Good Adduction 4 Good External Rotation 4 Good Internal Rotation 4 Good Left Flexion (L2) 4- Good- Extension (S1) 4 Good Abduction 4- Good- Adduction 4 Good External Rotation 4- Good- Internal Rotation 4- Good- Knee Strength Knee Manual Muscle Testing Right Flexion (S2) 4 Good Extension (L3) 4 Good Left Flexion (S2) 3+ Fair+ Extension (L3) 3+ Fair+ Comments Pain with resisted motion PT-OP-T Assessment and Plan Start: 08/25/23 08:11 Freq: Status: Active Protocol: Document 09/15/23 15:58 NM (Rec: 09/15/23 16:05 NM [id number]) Physical Therapy Assessment Assessment Summary Assessment Pt evaluated on 08/24 for shoulder and knee pain. She has attended 1 appt since IE. She has since no-showed 3 appointments in a row, and did not confirm reminder text that she would be attending prior to appointments. Pt was informed by front desk team member on 09/07 that future no-shows would lead to a discharge from PT for non-attendance and violation of attendance policy . Pt will need new referral in order to continue PT in future. Physical Therapy Plan Discharge Physical Therapy Discharge Reasons No Longer Attending PT Discharge Comments Pt has no showed last 3 appt ( 08/31, 09/02, 09/14). When pt called to make appt on 09/07, informed by front desk team member that next no show will lead to d/c. Pt no-showed appt on 09/14, leading to discharge. Pt to be discharged from PT for violation of attendance policy and will need new referral for future PT. Next Visit Focus/Plan Next Visit Plan Discharge from PT services
== END 2023-09-30 12:45 | disposition home or self-care (01) ==
LOC: PHYS 10:30
PROVIDERS: Family Provider Nurse Practitioner Family; PCP Nurse Practitioner Family; Referring Provider Nurse Practitioner Family; Visit Provider Nurse Practitioner Family
DX: M25.519 Pain in unspecified shoulder (principal); M25.569 Pain in unspecified knee; R53.1 Weakness; R27.8 Other lack of coordination
CPT/HCPCS: 97110; 97140; 97162; 97530

== ENCOUNTER → 2023-12-30 11:40 | Outpatient (CLI) | payer OTHER, MEDICAID, SELFPAY ==
--- NOTE | 2023-12-30 11:41 | DI.MG.S_ITS ---
BILATERAL DIGITAL SCREENING MAMMOGRAM 3D/2D WITH CAD: 12/30/2023 CLINICAL: Routine screening. Family history of breast cancer. Comparison is made to exams dated: 12/04/2022 mammogram, 05/09/2021 mammogram - [facility], and 08/17/2012 mammogram - outside facility. There are scattered areas of fibroglandular density in both breasts (category b / 25%-50% glandular tissue). Current study was also evaluated with a Computer Aided Detection (CAD) system. There is a biopsy clip in the left breast. No significant masses, calcifications, or other findings are seen in either breast. There has been no significant interval change. IMPRESSION: NEGATIVE There is no mammographic evidence of malignancy. A 1 year screening mammogram is recommended. Based on the Tyrer Cuzick model (a risk assessment model) the patient's lifetime risk is 12.7% and her 10 year risk is 5.2%. According to the ACR, ACS, and NCCN guidelines, an annual breast MRI exam along with mammogram is recommended if the patient's lifetime risk is 20% or greater. This exam was interpreted at Station ID: [id number]. NOTE: For mammograms, a report in lay terms will be sent to the patient. Approximately 15% of breast malignancies will not be visualized mammographically. In the management of a palpable breast mass, a negative mammogram must not discourage biopsy of a clinically suspicious lesion. Electronically Signed By: Leonila hendrickson/nico:12/30/2023 16:52:01 copy to: ILA TAYLOR letter sent: Normal Exam ACR BI-RADS Category 1: Negative [id number]
--- NOTE | 2023-12-30 11:41 | DI.US.S_ITS ---
PROCEDURE: US ABDOMEN LIMITED INDICATIONS: VENTRAL HERNIA,ROUTINE SCREENING TECHNIQUE: Real-time focused scanning was performed of the abdomen, with image documentation. COMPARISON: [facility], CT, CT ABDOMEN PELVIS WITHOUT CONTRAST, 09/07/2022, 12:16. FINDINGS: At the site of a prior right upper quadrant incision site, there is a 1.4 cm wide defect in the fascia of the right rectus abdominis musculature. There is a small amount of reducible intra-abdominal fat herniation from this defect. IMPRESSION: Small 1.4 cm fat-containing right ventral abdominal incisional hernia. Dictated by: Juan Morales M.D. on 12/30/2023 at 16:39 Approved by: Juan Morales M.D. on 12/30/2023 at 16:42
== END ==
PROVIDERS: Family Provider Nurse Practitioner Family; PCP Nurse Practitioner Family; Referring Provider Nurse Practitioner Family; Visit Provider Nurse Practitioner Family
DX: Z12.31 Encounter for screening mammogram for malignant neoplasm of breast (principal); K43.9 Ventral hernia without obstruction or gangrene; Z80.3 Family history of malignant neoplasm of breast; R92.323 Mammographic fibroglandular density, bilateral breasts
CPT/HCPCS: 76705; 77063; 77067

== ENCOUNTER 2025-01-05 11:02 | Emergency (ER) | payer OTHER, SELFPAY ==
--- NOTE | 2025-01-05 14:27 | PC.NURSE ---
Called patient several times today. registration was looking for patient. pt left at 1144 today. registration called and spoke with patient
--- NOTE | 2025-01-05 23:02 | ED.GENADULT ---
HPI - General Adult General Stated complaint: Numbness going Down left arm. 3 days sent from [facility] Time Seen by Provider: 01/05/25 11:08 Related Data Home Medications ?Medication ?Instructions ?Recorded ?Confirmed ALPRAZOLAM 1 mg PO TIDP ##0 02/05/10 HYDROXYZINE PAMOATE (Vistaril) 50 mg PO TID ##0 02/05/10 LITHIUM CARBONATE (Eskalith) 300 mg PO Q DAY ##0 02/05/10 Previous Rx's ?Medication ?Instructions ?Recorded cyclobenzaprine 5 mg tablet 5 mg PO TID PRN muscle spasm #10 05/27/21 tabs Allergies Allergy/AdvReac Type Severity Reaction Status Date / Time buprenorphine (From Suboxone) Allergy Verified 05/27/21 09:13 naloxone (From Suboxone) Allergy Verified 05/27/21 09:13 NSAIDS (Non-Steroidal Allergy Verified 05/27/21 09:13 Anti-Inflamma Patient History alcohol intake frequency: holidays/special occasions only Discharge Plan Departure Patient Disposition: Left Without Being Seen Clinical Impression: Patient left without being seen Prescriptions: No Action ALPRAZOLAM 1 mg PO TIDP Qty: 0 HYDROXYZINE PAMOATE (Vistaril) 50 mg PO TID Qty: 0 LITHIUM CARBONATE (Eskalith) 300 mg PO Q DAY Qty: 0 cyclobenzaprine 5 mg tablet 5 mg PO TID PRN (Reason: muscle spasm) Qty: 10 0RF
== END 2025-01-05 11:44 | disposition left against medical advice (07) ==
PROVIDERS: Emergency Provider Family Medicine; Family Provider Nurse Practitioner Family